=== PATIENT | male | born 1980 | race Hispanic/Latino ===

== ENCOUNTER 2018-10-25 07:31 | Outpatient (CLI) | payer BC ==
--- NOTE | 2018-10-25 08:53 | ULT ---
HEPATIC ULTRASOUND WITH GRAYSCALE, COLORFLOW, AND SPECTRAL DOPPLER: HISTORY: Hepatomegaly. FINDINGS: The liver measures 15 cm in length and demonstrates homogeneous echotexture without focal mass or int rahepatic ductal dilatation. No gallstones, gallbladder wall thickening, or pericholecystic fluid is seen. The common duct measur es 2 mm in diameter. The spleen measures 12.8 cm in length and is normal. The tail of the pancreas is obscured by bowel gas. The remainder of the pancreas is otherwise normal. No free fluid is seen in the right upper quadrant. There is normal flow and spectral waveforms in the hepatic, portal, and splenic vasculature. IMPRESSION: No significant abnormalities are seen. POS: OFF
== END 2018-10-25 07:32 | disposition home or self-care (01) ==
LOC: ULT 07:31
PROVIDERS: ATTEND Family Medicine
DX: R16.0 Hepatomegaly, not elsewhere classified (principal)
CPT/HCPCS: 76705

== ENCOUNTER 2018-11-12 16:33 | Emergency (ER) | payer BC | END 2018-11-12 17:05 | disposition home or self-care (01) | LOC: ERS 16:33 | DX: L03.317 Cellulitis of buttock (principal) ==

== ENCOUNTER 2021-07-08 16:53 | Emergency (ER) | payer BC, SELFPAY | END 2021-07-08 18:11 | disposition home or self-care (01) | LOC: ERS 16:53 | DX: R50.9 Fever, unspecified (principal); Z20.822 Contact with and (suspected) exposure to COVID-19 | CPT/HCPCS: 99283 ==